=== PATIENT | male | born 1945 | race Caucasian/White ===

== ENCOUNTER 2016-12-21 20:24 | Emergency (ER) | payer MEDICARE ==
[2016-12-21] MEDS ORDERED: cloNIDine HCL 0.1 MG TABLET PO ONE (21:10)
--- NOTE | 2016-12-21 21:42 | CT REPORT ---
HISTORY: Slurred speech. COMPARISON: None. TECHNIQUE: Axial non-contrast images obtained from skull vertex through foramen magnum. Dose reduction technique was utilized. FINDINGS: Brain volume and ventricular size are normal. There is mild chronic small vessel ischemic disease in the cerebral white matter. No acute infarct or hemorrhage is demonstrated. Small hypodensity in the r ight basal ganglia may represent an old lacunar infarct or prominent perivascular space. There is no extra-axial fluid collection. The skull is intact and visualized paranasal sinuses are unremarkable. IMPRESSION: 1. No acute infarct or hemorrhage demonstrated. 2. 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 Final Electronic Signature: This report was electronically signed by João Gold MD on 12/21/2016 9:39 PM. pati /
[2016-12-21 21:43] LABS: BASOPHILS 0.3 % (0.0-2.0); EOSINOPHILS 2.3 % (0.0-6.0); EOSINOPHILS# 0.1 X 10^3uL (0.0-0.4); HEMATOCRIT 44.6 % (42.0-54.0); HEMOGLOBIN 15.4 g/dL (14.0-18.0); LYMPHOCYTES 18.2 % (20.0-40.0); LYMPHOCYTES# 1.1 X 10^3uL (0.8-3.8); MEAN CELL VOLUME 86.8 fL (80.0-100.0); MEAN CORPUS. HGB CONCENTRATION 34.5 g/dL (32.0-36.0); MEAN PLATELET VOLUME 9.5 fL (7.4-10.4); MONOCYTES 7.8 % (2.0-10.0); MONOCYTES# 0.5 X 10^3uL (0.2-1.0); NEUTROPHILS 71.4 % (54.0-75.0); NEUTROPHILS# 4.3 X 10^3uL (2.6-6.7); PLATELET COUNT 179 X 10^3uL (130-440); RED BLOOD COUNT 5.14 X 10^6uL (4.20-6.10); RED CELL DISTRIBUTION WIDTH 12.7 % (11.5-14.5)
[2016-12-21 21:55] LABS: BLOOD UREA NITROGEN 24 mg/dL (9-20); CALCIUM 8.7 mg/dL (8.4-10.2); CHLORIDE 107 mmol/L (98-107); EST GLOMERULAR FILTRATION RATE > 60 mL/min; GLUCOSE 111 mg/dL (70-100); POTASSIUM 3.6 mmol/L (3.5-5.1); SODIUM 142 mmol/L (137-145)
--- NOTE | 2016-12-21 22:00 | ER PHYSICIAN DOCUMENTATION ---
Physician Documentation [facility] Name:Danish Justice Age:71 yrs Sex:Male :1945 Arrival Date:12/21/2016 Time:20:24 Bed4 Private MD: Jayson Gonzalez Disposition: 12/21/16 21:50 Discharged to Home/Self Care. Impression: Transient Ischemic Attack (TIA). - Condition is Good. - Discharge Instructions: TIA. - Medical Reconciliation form form. - Follow up: Dutch Drew MD; When: Tomorrow; Reason: Recheck today's complaints, Continuance of care. - Problem is new. - Symptoms are resolved. - Notes: Plavix 75mg by mouth every day for 7 days. Drink plenty of fluids each day. Return to the Cardiology Clinic for an Echocardiogram and Bilateral Carotid Ultrasounds. See Dr. Drew tomorrow. HPI: 12/21 20:30 This 71 yrs old Male presents to ER via Walk In with complaints of S/S of cd Possible Stroke. 20:30 The patient's problem is reported as dysphasia, incoherent speech. Onset: The cd symptom(s)/episode began/occurred acutely, 60 minute(s) ago, and improved just prior to arrival, and currently has no symptoms whatsoever. Duration: This was a single incident, The episode is continuous, completely resolved now.. Context: the episode(s) was witnessed, by no one, symptoms became apparent at 19:30. occurred at home, occurred while the patient was sitting. Associated signs and symptoms: The patient has no apparent associated signs or symptoms. Severity of symptoms: At their worst the symptoms were moderate in the emergency department the symptoms have resolved and did so just prior to arrival. The patient has not experienced similar symptoms in the past. No previous symptoms of TIA or CVA.. Historical: - Allergies: Epinephrine; - Tetanus: < 10 years. - Ebola Screening: : Patient negative for fever greater than or equal to 101.5 degrees Fahrenheit, and additional compatible Ebola Virus Disease symptoms. Patient denies exposure to infectious person. Patient denies travel to an Ebola-affected area in the 21 days before illness onset. No symptoms or risks identified at this time. . - Immunization history: Flu Vaccine < 1 year. - Social history: Smoking status: Patient states was never smoker of tobacco. ROS: 20:40 Constitutional: Negative for fever, chills, rigors and weight loss. cd Eyes: Negative for injury, pain, redness, discharge, blurry vision and loss of vision. ENT: Negative for injury, pain, epistaxis and discharge. Neck: Negative for injury, pain, stiffness and swelling. Cardiovascular: Negative for chest pain, palpitations, edema and pleuritic pain. Respiratory: Negative for shortness of breath, dyspnea on exertion, cough, sputum production, wheezing, hemoptysis and pleuritic chest pain. Abdomen/GI: Negative for abdominal pain, nausea, vomiting, diarrhea, constipation, distension, melena, hematochezia and hematemesis. Back: Negative for injury, pain or muscle spasms. : Negative for injury, bleeding, discharge, swelling, dysuria, frequency or urgency. MS/Extremity: Negative for injury, deformity, edema, calf tenderness, pain or coldness. Skin: Negative for injury, rash, itching and discoloration. 20:40 Psych: Negative for depression, anxiety, suicide ideation, homicidal ideation, and cd hallucinations. 20:40 Neuro: Positive for speech changes, Negative for altered mental status, dizziness, headache, loss of consciousness, numbness, seizure activity, syncope, tingling, visual changes, weakness. 20:40 All other systems are negative. Exam: Head/Face: Normocephalic, atraumatic. Eyes: Pupils equal round and reactive to light, extra-ocular motions intact. Lids and lashes normal. Conjunctiva and sclera are non-icteric and not injected. Cornea within normal limits. Periorbital areas with no swelling, redness, or edema. ENT: Nares patent. No nasal discharge, no septal abnormalities noted. Tympanic membranes are normal and external auditory canals are clear. Oropharynx with no redness, swelling, or masses, exudates, or evidence of obstruction, uvula midline. Mucous membranes moist. Neck: Trachea midline, no thyromegaly or masses palpated, and no cervical lymphadenopathy. Supple, full range of motion without nuchal rigidity, or vertebral point tenderness. No Meningismus. Chest/axilla: Normal chest wall appearance and motion. Nontender with no deformity. No lesions are appreciated. Cardiovascular: Regular rate and rhythm with a normal S1 and S2. No gallops, murmurs, or rubs. Normal PMI, no JVD. No pulse deficits. Respiratory: Lungs have equal breath sounds bilaterally, clear to auscultation and percussion. No rales, rhonchi or wheezes noted. No increased work of breathing, no retractions or nasal flaring. Abdomen/GI: Soft, non-tender, with normal bowel sounds. No distension or tympany. No guarding or rebound. No evidence of tenderness throughout. Back: No spinal tenderness. No costovertebral tenderness. Full range of motion. Skin: Warm, dry with normal turgor. Normal color with no rashes, no lesions, and no evidence of cellulitis. 20:40 MS/ Extremity: Pulses equal, no cyanosis. Neurovascular intact. Full, normal range cd of motion. 20:40 Constitutional: The patient appears alert, awake, non-diaphoretic, non-toxic. 20:40 Neuro: Orientation: is normal, to person, place & time. Mentation: is normal, lucid, Memory: is normal, Cranial nerves: CN II- XII are normal as tested, Cerebellar function: is grossly normal, normal finger to nose testing, heel to berg testing is normal, Motor: is normal, Sensation: is normal, Gait: is steady, without difficulty, Deep tendon reflexes are normal. Vital Signs: 20:30 BP 181 / 94; Pulse 89; Resp 16; Temp 98.1; Pulse Ox 93% on R/A; Weight 61.23 kg; Height em1 5 ft. 10 in. (177.80 cm); Pain 0/10; 20:35 BP 181 / 90; Pulse 78; Resp 18 S; Temp 98(O); Pulse Ox 95% on R/A; Weight 74.84 kg (R); bw2 Height 5 ft. 10 in. (177.80 cm); Pain 0/10; 21:22 BP 165 / 80; Pulse 77; bw2 21:58 BP 166 / 82; Pulse 70; Resp 18; Temp 97.8(O); Pulse Ox 96% on R/A; Pain 0/10; bw2 20:35 Body Mass Index 23.67 (74.84 kg, 177.80 cm) bw2 NIH Stroke Scale Scores: 20:31 NIHSS Score: 0 bw2 Lit Coma Score: 20:40 Eye Response: spontaneous(4). Verbal Response: oriented(5). Motor Response: obeys cd commands(6). Total: 15. MDM: 20:32 Patient medically screened. 20:40 Differential diagnosis: CVA, TIA, metabolic disorder. Data interpreted: Pulse oximetry: on room air is 96 %. Interpretation: normal. Counseling: I had a detailed discussion with the patient and/or guardian regarding: the historical points, exam findings, and any diagnostic results supporting the discharge/admit diagnosis, lab results, radiology results, the need for outpatient follow up, for a recheck, with the patient's primary care provider, to return to the emergency department if symptoms worsen or persist or if there are any questions or concerns that arise at home. 21:45 Neurological re-evaluation: normal neurological exam including cranial nerves, cd orientation, mentation, motor and sensory exam, cerebellar testing, GCS normal, and normal gait. Response to treatment: the patient's symptoms have resolved after treatment, the patient's condition has returned to base line, and as a result, I will discharge patient. 21:50 Data reviewed: vital signs, nurses notes, old medical records, lab test result(s), EKG, cd radiologic studies, CT scan, and as a result, I will discharge patient, start him on Plavix 75 mg PO qday and will obtain out-patient Bilateral Carotid US and Echocardiogram in the next couple days.. 21:55 ED course: Patient is very anxious to leave . We have given him a Plavix and will have cd him follow up this next week for Bilateral Carotid Studies and an Echocardiogram. He agrees to this.. 12/21 21:50 Order name: CBC AUTO DIF, MDIF/RMOR IF IND; Complete Time: 18:43 EDMS 12/23 18:42 Interpretation: Normal. 12/21 21:59 Order name: BASIC METABOLIC PANEL; Complete Time: 18:43 EDMS 12/23 18:42 Interpretation: Normal: CARBON DIOXIDE 21. 12/21 22:51 Order name: PROTIME/INR; Complete Time: 18:43 EDMS 12/23 18:42 Interpretation: Normal. 12/21 21:43 Order name: CAT SCAN; HEAD W/O CON [id number]; Complete Time: 21:44 EDMS 12/23 18:43 Interpretation: Normal Except: See Radiologist Reading. 12/21 20:41 Order name: 12-lead EKG; Complete Time: 21:38 12/21 20:41 Order name: Continuous Cardiac Monitoring; Complete Time: 21:19 12/21 20:41 Order name: I & O; Complete Time: 21:19 12/21 20:41 Order name: NIH Stroke Scale; Complete Time: 21:19 12/21 20:41 Order name: NPO; Complete Time: 21:38 12/21 20:41 Order name: Pulse Ox Continuous; Complete Time: 21:38 12/21 20:41 Order name: Accucheck; Complete Time: 21:19 12/21 20:41 Order name: Iv Saline Lock; Complete Time: 21:19 cd Dispensed Medications: 21:19 Not Given (Physician Discretion): cloNIDine 0.1 mg PO once bw2 21:54 Drug: Plavix 75 mg; Route: PO; bw2 22:00 Follow up: Response: No adverse reaction bw2 Point of Care Testing: Blood Glucose: 20:35 Blood Glucose: 123 mg/dL; bw2 Ranges: Critical Glucose Levels:Adult <50 mg/dl or >400 mg/dl <40 mg/dl or >180 mg/dl NIH Stroke Scale - NIH Stroke Score Date: 12/21/2016 Time: 20:31 Total Score = 0 1a. Level of Consciousness (LOC) - 0(Alert) 1b. Level of Consciousness (LOC) (Year & Age) - 0(Both) 1c. LOC Commands (Open & Closes Eyes/Skiing Instructor) - 0(Both) 2. Best Gaze (Lateral Gaze Paresis) - 0(Normal) 3. Visual Field Loss - 0(No visual loss) 4. Facial Palsy - 0(Normal) 5a. Left Arm: Motor (10-second hold) - 0(No drift) 5b. Right Arm: Motor (10-second hold) - 0(No drift) 6a. Left Leg: Motor (5-second hold ? always test supine) - 0(No drift) 6b. Right Leg: Motor (5-second hold ? always test supine) - 0(No drift) 7. Limb Ataxia (finger/nose & heel/berg ? test with eyes open) - 0(Absent) 8. Sensory Loss (pinprick arms/legs/face) - 0(Normal) 9. Best Language: Aphasia (description/naming/reading) - 0(No aphasia) 10. Dysarthria (speech clarity ? read or repeat words) - 0(Normal) 11. Extinction and Inattention (visual/tactile/auditory/spatial/personal) - 0(No abnormality) Initials: bw2 Signatures: Jayson Diez MD MD cd Wisely, Beth bw2
--- NOTE | 2016-12-21 22:00 | ER NURSING DOCUMENTATION ---
Nurse's Notes [facility] Name:Danish Justice Age:71 yrs Sex:Male :1945 Arrival Date:12/21/2016 Time:20:24 Bed4 Private MD: Diagnosis:Transient Ischemic Attack (TIA) Presentation: 12/21 20:31 Presenting complaint: Patient states: he had slurred speech about 60 mins ago. pt bw2 states symptoms have since resolved. pt able to ambulate without assistance. Transition of care: patient was not received from another setting of care. No acute neurological deficit is noted. 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 2 Triage Assessment: 20:34 The onset of the patients symptoms was less than three hours ago. General: Appears in 2 no apparent distress, Behavior is appropriate for age. Pain: Denies pain. Neuro: No deficits noted. Reports slurred speech about an hour ago. has since resolved . Stroke Activation: Physician: ED Attending; Name: ; Notified At: ; Arrived At: Physician: animal rehabilitator; Name: ; Notified At: ; Arrived At: Physician: Roping Machine Tender; Name: ; Notified At: ; Arrived At: Physician: [not used]; Name: ; Notified At: ; Arrived At: Physician: [not used]; Name: ; Notified At: ; Arrived At: 21:49 N/A 2 Historical: - Allergies: Epinephrine; - Tetanus: < 10 years. - Ebola Screening: : Patient negative for fever greater than or equal to 101.5 degrees Fahrenheit, and additional compatible Ebola Virus Disease symptoms. Patient denies exposure to infectious person. Patient denies travel to an Ebola-affected area in the 21 days before illness onset. No symptoms or risks identified at this time. . - Immunization history: Flu Vaccine < 1 year. - Social history: Smoking status: Patient states was never smoker of tobacco. Screenin:36 Infectious Disease Risk None. Abuse screen: Denies threats or abuse. Nutritional 2 screening: No deficits noted. Assessment: 20:36 See Triage Assessment done by same RN. 2 Vital Signs: 20:30 BP 181 / 94; Pulse 89; Resp 16; Temp 98.1; Pulse Ox 93% on R/A; Weight 61.23 kg; Height em1 5 ft. 10 in. (177.80 cm); Pain 0/10; 20:35 BP 181 / 90; Pulse 78; Resp 18 S; Temp 98(O); Pulse Ox 95% on R/A; Weight 74.84 kg (R); bw2 Height 5 ft. 10 in. (177.80 cm); Pain 0/10; 21:22 BP 165 / 80; Pulse 77; bw2 21:58 BP 166 / 82; Pulse 70; Resp 18; Temp 97.8(O); Pulse Ox 96% on R/A; Pain 0/10; bw2 20:35 Body Mass Index 23.67 (74.84 kg, 177.80 cm) bw2 Lit Coma Score: 20:40 Eye Response: spontaneous(4). Verbal Response: oriented(5). Motor Response: obeys cd commands(6). Total: 15. NIH Stroke Scale Scores: 20:31 NIHSS Score: 0 bw2 ED Course: 20:25 Patient arrived in ED. em3 20:26 Maddy Houser is Primary Nurse. bw2 20:32 Jayson Diez MD is Attending Physician. cd 20:34 Triage completed. bw2 20:36 Valuables Remains with patient. Cardiac Monitoring On for Nurse Monitoring only. Pulse bw2 Ox - RN Monitoring Only NIBP On - RN Monitoring Only. 21:48 pt is requesting to leave. notified. bw2 21:49 Dutch Drew MD is Referral Physician. cd Administered Medications: 21:19 Not Given (Physician Discretion): cloNIDine 0.1 mg PO once bw2 21:54 Drug: Plavix 75 mg; Route: PO; bw2 22:00 Follow up: Response: No adverse reaction bw2 Point of Care Testing: Blood Glucose: 20:35 Blood Glucose: 123 mg/dL; bw2 Ranges: Outcome: 21:50 Discharge ordered by . cd 21:58 Discharged to home ambulatory. bw2 21:58 Condition: good 21:58 Discharge Assessment: Patient awake, alert and oriented x 3. No cognitive and/or functional deficits noted. Patient verbalized understanding of disposition instructions. 21:58 Discharge instructions given to patient, Instructed on discharge instructions, follow up and referral plans. Demonstrated understanding of instructions, medications, Prescriptions given X 1. 22:00 Patient left the ED. bw2 12/22 18:30 Discharge F/U Call: Unable to reach: no answer NIH Stroke Scale - NIH Stroke Score Date: 12/21/2016 Time: 20:31 Total Score = 0 1a. Level of Consciousness (LOC) - 0(Alert) 1b. Level of Consciousness (LOC) (Year & Age) - 0(Both) 1c. LOC Commands (Open & Closes Eyes/Willow Analyst) - 0(Both) 2. Best Gaze (Lateral Gaze Paresis) - 0(Normal) 3. Visual Field Loss - 0(No visual loss) 4. Facial Palsy - 0(Normal) 5a. Left Arm: Motor (10-second hold) - 0(No drift) 5b. Right Arm: Motor (10-second hold) - 0(No drift) 6a. Left Leg: Motor (5-second hold ? always test supine) - 0(No drift) 6b. Right Leg: Motor (5-second hold ? always test supine) - 0(No drift) 7. Limb Ataxia (finger/nose & heel/berg ? test with eyes open) - 0(Absent) 8. Sensory Loss (pinprick arms/legs/face) - 0(Normal) 9. Best Language: Aphasia (description/naming/reading) - 0(No aphasia) 10. Dysarthria (speech clarity ? read or repeat words) - 0(Normal) 11. Extinction and Inattention (visual/tactile/auditory/spatial/personal) - 0(No abnormality) Initials: bw2 Signatures: Jayson Diez MD MD cd Norman, David dnn [employer], Tencent em1 Wang Sullivan Rachel rh Wisely, Beth bw2
[2016-12-21] MEDS ORDERED: CLOPIDOGREL BISULFATE 75 MG TABLET PO ONE (22:08)
== END 2016-12-21 22:00 | disposition home or self-care (01) ==
LOC: ER 20:24
DX: G45.9 Transient cerebral ischemic attack, unspecified (principal); R29.700 NIHSS score 0
CPT/HCPCS: 70450; 80048; 85025; 85610; 99283